=== PATIENT | male | born 1980 | race Caucasian/White ===

== ENCOUNTER 2016-10-10 19:56 | Emergency (ER) | payer OTHER ==
[~2016-10-10] VITALS: Ht 188 cm; Wt 115.7 kg
[~2016-10-10 19:56] MED LIST: AZIT-21 PO; GFCD10B PO
[2016-10-10 20:38] VITALS: BP 139/97
[2016-10-10] MEDS ORDERED: LISI10TA2 (20:40)
[2016-10-10] MEDS ORDERED: ASPIRIN 81 MG CHEW (CHILDREN'S ASA) PO ONE (21:00)
--- NOTE | 2016-10-10 21:13 | Diagnostic Imaging Report ---
INDICATION: Chest pressure. Cough. COMPARISON: None FINDINGS: Single frontal view of the chest demonstrates normal heart size and pulmonary vascularity. The lungs are well aerated and clear. No large pleural effusion or pneumothorax is seen. The visualized osseous structures show no acute abnormalities. IMPRESSION: 1. No acute cardiopulmonary process. Dictated by: Dictated on workstation # [id number]
[2016-10-10 21:14] LABS: BASOPHILS % (AUTO) 0 % (0-10); EOSINOPHILS # (AUTO) 0.1 10^3/uL (0.0-0.3); EOSINOPHILS % (AUTO) 1 % (0-10); LYMPHOCYTES # (AUTO) 2.2 X 10^3 (1.0-4.0); LYMPHOCYTES % (AUTO) 29 % (12-44); MEAN CORPUSCULAR HEMOGLOBIN 30 PG (25-34); MEAN CORPUSCULAR HGB CONC 34 G/DL (32-36); MEAN CORPUSCULAR VOLUME 89 FL (80-99); MONOCYTES # (AUTO) 0.7 X 10^3 (0.0-1.0); MONOCYTES % (AUTO) 9 % (0-12); NEUTROPHILS # (AUTO) 4.6 X 10^3 (1.8-7.8); NEUTROPHILS % (AUTO) 60 % (42-75); PLATELET COUNT 216 10^3/uL (130-400); RED BLOOD COUNT 5.03 10^6/uL (4.35-5.85); RED CELL DISTRIBUTION WIDTH 13.7 % (10.0-14.5); WHITE BLOOD COUNT 7.7 10^3/uL (4.3-11.0)
[2016-10-10 21:22] LABS: PROTHROMBIN TIME PATIENT 13.2 SEC (12.2-14.7)
[2016-10-10 21:31] LABS: ALANINE AMINOTRANSFERASE 20 U/L (0-55); ANION GAP 9 MMOL/L (5-14); ASPARTATE AMINO TRANSFERASE 19 U/L (5-34); BILIRUBIN,TOTAL 0.4 MG/DL (0.1-1.0); BLOOD UREA NITROGEN 16 MG/DL (7-18); BUN/CREATININE RATIO 14; CALCIUM 8.9 MG/DL (8.5-10.1); CARBON DIOXIDE 22 MMOL/L (21-32); CHLORIDE 109 MMOL/L (98-107); CREATININE SERUM 1.15 MG/DL (0.60-1.30); GFR ESTIMATED > 60; GLUCOSE 96 MG/DL (70-105); MAGNESIUM 2.2 MG/DL (1.8-2.4); POTASSIUM 4.1 MMOL/L (3.6-5.0); SODIUM 140 MMOL/L (135-145); TOTAL PROTEIN 6.9 G/DL (6.4-8.2)
[2016-10-10 21:37] LABS: MYOGLOBIN SERUM 30.6 NG/ML (10.0-92.0)
--- NOTE | 2016-10-10 21:53 | ED Chest Pain ---
General Chief Complaint: Chest Pain Stated Complaint: CHEST CONJESTION Nursing Triage Note: PATIENT REPORTS CHEST PRESSURE X 5 DAYS. PATIENT DENIES SOA, N/V. PATIENT REPORTS A COUGH FOR 1 MONTH Nursing Sepsis Screen: No Definite Risk Source: patient Exam Limitations: no limitations History of Present Illness Time seen by provider: 20:47 Initial Comments This 35-year-old gentleman presents to emergency room with complaints of pain in the left chest for several days. He also describes nonspecific palpitations. Symptoms are fairly constant and he cannot identify any alleviating or exacerbating factors. He describes the pain as a bear hugging sensation in the left chest. He reports having an upper respiratory infection about one month ago and he still has some lingering symptoms from that. He has some mild discomfort in both arms. He denies any pain or swelling in the lower extremities. He denies any tobacco or drug use. He occasionally drinks alcohol. He denies nausea, vomiting, or diarrhea. He denies any early family history of heart problems. He takes lisinopril for hypertension. Ibuprofen use at home has not been very helpful. Antacids at home have not been very helpful either. Allergies and Home Medications Allergies Coded Allergies: No Known Drug Allergies (Unverified , 01/11/10) Home Medications Lisinopril 10 Mg Tablet #90 (Reported) Review of Systems Constitutional: no symptoms reported EENTM: No Symptoms Reported Respiratory: No Symptoms Reported Cardiovascular: See HPI Gastrointestinal: No Symptoms Reported Genitourinary: No Symptoms Reported Musculoskeletal: see HPI Skin: no symptoms reported Psychiatric/Neurological: No Symptoms Reported Endocrine: No Symptoms Reported Past Zenxsik-Mfsekm-Hyqmyc Hx Patient Social History Alcohol Use: Occasionally Uses Recreational Drug Use: No Smoking Status: Never a Smoker Recent Foreign Travel: No Contact w/Someone Who Travel: No Recent Infectious Disease Expo: No Surgeries HX Surgeries: No Respiratory Hx Respiratory Disorders: No Cardiovascular Hx Cardiac Disorders: Yes Cardiac Disorders: Hypertension Neurological Hx Neurological Disorders: No Genitourinary Hx Genitourinary Disorders: No Gastrointestinal Hx Gastrointestinal Disorders: No Musculoskeletal Hx Musculoskeletal Disorders: No Endocrine Hx Endocrine Disorders: No HEENT HX ENT Disorders: No Cancer Hx Cancer: No Psychosocial Hx Psychiatric Problems: No Family Medical History Significant Family History: Heart Disease ("Leaky aorta") Physical Exam Vital Signs Vital Sign - Last 12Hours Capillary Refill : Less Than 3 Seconds General Appearance: No Apparent Distress WD/WN HEENT: PERRL/EOMI Normal ENT Inspection Neck: Normal Inspection Respiratory: Lungs Clear Normal Breath Sounds No Accessory Muscle Use No Respiratory Distress Other (Mild chest tenderness to palpation) Cardiovascular: Regular Rate, Rhythm No Edema No Murmur Normal Peripheral Pulses Gastrointestinal: Non Tender Soft Extremity: Normal Inspection Non Tender No Calf Tenderness No Pedal Edema Neurologic/Psychiatric: Alert Oriented x3 No Motor/Sensory Deficits Normal Mood/Affect structural ironworker II-XII Norm as Tested Skin: Normal Color Warm/Dry Progress/Results/Core Measures Results/Orders Lab Results Laboratory Tests Test 10/10/16 21:06 Range/Units Activated Partial Thromboplast Time 22 L 24-35 SEC Alanine Aminotransferase (ALT/SGPT) 20 0-55 U/L Albumin 4.0 3.2-4.5 G/DL Alkaline Phosphatase 48 40-136 U/L Anion Gap 9 5-14 MMOL/L Aspartate Amino Transf (AST/SGOT) 19 5-34 U/L BUN/Creatinine Ratio 14 Basophils # (Auto) 0.0 0.0-0.1 10^3/uL Basophils (%) (Auto) 0 0-10 % Blood Urea Nitrogen 16 7-18 MG/DL Calcium Level 8.9 8.5-10.1 MG/DL Carbon Dioxide Level 22 21-32 MMOL/L Chloride Level 109 H 98-107 MMOL/L Creatinine 1.15 0.60-1.30 MG/DL Eosinophils # (Auto) 0.1 0.0-0.3 10^3/uL Eosinophils (%) (Auto) 1 0-10 % Estimat Glomerular Filtration Rate > 60 Glucose Level 96 70-105 MG/DL Hematocrit 45 40-54 % Hemoglobin 15.3 13.3-17.7 G/DL INR Comment 1.0 0.8-1.4 Lymphocytes # (Auto) 2.2 1.0-4.0 X 10^3 Lymphocytes (%) (Auto) 29 12-44 % Magnesium Level 2.2 1.8-2.4 MG/DL Mean Corpuscular Hemoglobin 30 25-34 PG Mean Corpuscular Hemoglobin Concent 34 32-36 G/DL Mean Corpuscular Volume 89 80-99 FL Mean Platelet Volume 9.0 7.4-10.4 FL Monocytes # (Auto) 0.7 0.0-1.0 X 10^3 Monocytes (%) (Auto) 9 0-12 % Myoglobin 30.6 10.0-92.0 NG/ML Neutrophils # (Auto) 4.6 1.8-7.8 X 10^3 Neutrophils (%) (Auto) 60 42-75 % Platelet Count 216 130-400 10^3/uL Potassium Level 4.1 3.6-5.0 MMOL/L Prothrombin Time 13.2 12.2-14.7 SEC Red Blood Count 5.03 4.35-5.85 10^6/uL Red Cell Distribution Width 13.7 10.0-14.5 % Sodium Level 140 135-145 MMOL/L Total Bilirubin 0.4 0.1-1.0 MG/DL Total Protein 6.9 6.4-8.2 G/DL Troponin I < 0.30 <0.30 NG/ML White Blood Count 7.7 4.3-11.0 10^3/uL My Orders Orders-JUANPABLO MISHRA MD Cbc With Automated Diff (10/10/16 20:57) Magnesium (10/10/16 20:57) Chest 1 View, Ap/Pa Only (10/10/16 20:57) Ekg Tracing (10/10/16 20:57) Cardiac Profile 1 (10/10/16 20:57) Comprehensive Metabolic Panel (10/10/16 20:57) Myoglobin Serum (10/10/16 20:57) Protime With Inr (10/10/16 20:57) Partial Thromboplastin Time (10/10/16 20:57) O2 (10/10/16 20:57) Monitor-Rhythm Ecg Trace Only (10/10/16 20:57) Aspirin Chewable Tablet (Baby Aspirin Ch (10/10/16 21:00) Saline Lock/Iv-Start (10/10/16 20:57) Medications Given in ED Vital Signs/I&O Vital Sign - Last 12Hours 10/10/16 10/10/16 10/10/16 20:38 20:38 20:38 Temp 98.2 Pulse 94 Resp 18 B/P 139/97 Pulse Ox 96 O2 Delivery Room Air Room Air Blood Pressure Mean: 111 Progress Note : Progress Note Aspirin was administered and chest pain protocol was ordered. Workup was unremarkable. ECG Initial ECG Impression Date: Oct 10, 2016 Initial ECG Impression Time: 20:45 Initial ECG Rate: 87 Initial ECG Rhythm: Normal Sinus Initial ECG Intervals: Normal Initial ECG Impression: Normal Comment Normal sinus rhythm with no ST elevation or depression. No abnormal intervals or axis deviation. Diagnostic Imaging Diagonstic Imaging: Xray Plain Films/CT/US/NM/MRI: chest Comments Chest x-ray viewed by me and report reviewed. See report below: NAME: NEL MCCLELLAND [facility] REC#: [id number] PT STATUS: DEP ER : 1980 PHYSICIAN: JUANPABLO MISHRA MD ADMIT DATE: 10/10/16/ER Signed Date of Exam: 10/10/16 CHEST 1 VIEW, AP/PA ONLY INDICATION: Chest pressure. Cough. COMPARISON: None FINDINGS: Single frontal view of the chest demonstrates normal heart size and pulmonary vascularity. The lungs are well aerated and clear. No large pleural effusion or pneumothorax is seen. The visualized osseous structures show no acute abnormalities. IMPRESSION: 1. No acute cardiopulmonary process. Dictated by: Dictated on workstation # [id number] Dict: 10/10/162111 Trans: 10/10/162156 [facility] [id number] Interpreted by: MEGHAN DAY Electronically signed by:MEGHAN DAY 10/10/162158 Departure Impression Impression: Primary Impression: Atypical chest pain Disposition: 01 HOME, SELF-CARE Condition: Stable Departure-Patient Inst. Decision time for Depature: 21:52 Referrals: NO,LOCAL PHYSICIAN (PCP/Family) Primary Care Physician Patient Instructions: Chest Pain (DC) Add. Discharge Instructions: You may take ibuprofen up to 800 mg 3 times daily. Take with food or milk to avoid irritation on your stomach. Add Tylenol (Acetaminophen) up to 1000 mg every 6 hours as needed for additional pain relief. Follow-up with your primary care provider next week. Return to the ER if symptoms worsen. All discharge instructions reviewed with patient and/or family. Voiced understanding. JUANPABLO MISHRA MD Oct 10, 2016 21:53
== END 2016-10-10 21:56 | disposition home or self-care (01) ==
LOC: EDUNIT# 19:56 → ER 19:59
DX: R07.89 Other chest pain (principal); I10 Essential (primary) hypertension; Z79.899 Other long term (current) drug therapy
CPT/HCPCS: 36415; 71010; 80053; 83735; 83874; 84484; 85025; 85610; 85730; 93005; 93041